=== PATIENT | female | born 2005 | race Two or more races ===

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

== ENCOUNTER 2025-01-22 13:34 | Outpatient (REF) | payer MEDICAID, SELFPAY ==
[2025-01-22 16:43] LABS: CT PCR NOT DETECTED (Not Detect.); NG PCR NOT DETECTED (Not Detect.)
== END 2025-01-22 13:35 | disposition home or self-care (01) ==
LOC: HO.CHCLNP 13:34
PROVIDERS: Visit Provider Advanced Practice Midwife
DX: Z11.3 Encounter for screening for infections with a predominantly sexual mode of transmission (principal)
CPT/HCPCS: 87491; 87591

== ENCOUNTER 2025-02-03 18:29 | Outpatient (REF) | payer MEDICAID, SELFPAY ==
[2025-02-04 09:27] LABS: Bacterial Vaginosis PCR NEGATIVE (Negative); Candida Group PCR DETECTED (Not Detect); Candida glab krusei PCR NOT DETECTED (Not Detect); Trichomonas vaginalis PCR NOT DETECTED (Not Detect)
[2025-02-04 09:58] LABS: CT PCR NOT DETECTED (Not Detect.); NG PCR NOT DETECTED (Not Detect.)
== END 2025-02-03 18:30 | disposition home or self-care (01) ==
LOC: HO.HHCLNP 18:29
PROVIDERS: Visit Provider Internal Medicine
DX: O26.891 Other specified pregnancy related conditions, first trimester (principal); N89.8 Other specified noninflammatory disorders of vagina
CPT/HCPCS: 81515; 87491; 87591